=== PATIENT | male | born 1960 | race Caucasian/White ===

== ENCOUNTER 2024-08-22 15:58 | Emergency (ER) | payer BC, SELFPAY ==
[2024-08-22 16:04] VITALS: BP 145/94; PULSE 61; RESP 16; TEMP 36.9; O2SAT 100; BMI 26.4
[2024-08-22] MEDS: TET,DIPH,PERTUSS(ACELL),VAC/PF 0.5 ML SYRINGE IM (19:20)
--- NOTE | 2024-08-22 20:01 | ED.WOUNDLAC ---
HPI - Wound/Laceration General Chief Complaint: Wound/Laceration Stated Complaint: Lt hand wound Time Seen by Provider: 08/22/24 20:01 Source: patient Mode of arrival: Ambulatory History of Present Illness HPI narrative: 63-year-old male without any significant past medical history presents for evaluation of left thumb injury, states he was using a chain saw in the blade hit his thumb almost states that he is not up to date on his tetanus shot. He denies any other injuries or complaints at this time. Not on any blood thinners. Related Data Allergies Allergy/AdvReac Type Severity Reaction Status Date / Time dapsone AdvReac lab value Verified 08/22/24 16:04 changes Review of Systems Review of Systems Narrative: General: Denies fever, chills, weight loss HEENT: Denies headache, eye drainage, eye irritation, head trauma, sore throat, voice change Cardiovascular: Denies any chest pain, palpitations, tachycardia Respiratory: Denies any shortness of breath, cough, wheeze, stridor GI/: Denies any abdominal pain, nausea, vomiting, diarrhea, bright red blood per rectum, melanotic stools, urinary frequency, urinary retention, dysuria, hematuria MSK: Denies any joint pain, muscle pains, swelling Skin: Positive left thumb injury Neuro: Denies any headache, lightheadedness, dizziness, fainting, weakness Psych: Denies SI/HI Patient History Smoking Status: Never smoker Exam Narrative Exam Narrative: General: Cooperative, well-developed, not in acute distress HEENT: Normocephalic, atraumatic, PERRLA, normal sclera, eyelids normal Neck: Active full range of motion, atraumatic Chest: Normal to inspection, negative crepitus, no overlying erythema ecchymosis Respiratory: Normal respiratory effort, not in acute respiratory distress, clear to auscultation bilaterally negative cough, wheeze, tachypnea, rhonchi, rales Cardiology: Regular rate rhythm negative gallop, murmur, rubs GI/: No tenderness to palpation, soft, non rigid, normal to inspection, exam deferred MSK: Full active range of motion in all 4 extremities, atraumatic, no tenderness to palpation of any bony prominences Skin: 2 cm laceration noted to the medial aspect of the left thumb, neurovascularly intact not active bleeding no foreign body Neuro: Alert awake oriented x3, moves all 4 extremities spontaneously, cranial nerves intact, able to answer all questions appropriately follows commands appropriately Psych: Cooperative, negative suicidal or homicidal ideations Initial Vital Signs Initial Vital Signs: Vital Signs Temperature 98.4 F 08/22/24 16:04 Pulse Rate 61 08/22/24 16:04 Respiratory Rate 16 08/22/24 16:04 Blood Pressure 145/94 H 08/22/24 16:04 Pulse Oximetry 100 08/22/24 16:04 Oxygen Delivery Method Room Air 08/22/24 16:04 Procedures Laceration Repair Laceration 1: Time of procedure: 20:45 Site: hand Side (If applicable): left Size (cm): 2 Description: linear Depth: simple, single layer Local Anesthetic: lidocaine 2% Amount of anesthesia used (mL): 5 Skin layer closed with: other (Ethilon) Skin layer suture size: 4-0 Number of sutures: 5 Technique: simple, interrupted Course Orders Ordered: Discontinued Medications Diphtheria/Tetanus/Acell Pertussis (Tet,Diph,Pertuss(Acell),Vac/Pf 0.5 Ml Syringe) 0.5 ml IM .ONCE ONE Stop: 08/22/24 19:10 Last Admin: 08/22/24 19:20 Dose: 0.5 ml Documented By: CM Vital Signs Vital signs: Vital Signs - 8 hr 08/22/24 16:04 Temperature 98.4 F Pulse Rate 61 Respiratory Rate 16 Blood Pressure 145/94 H Pulse Oximetry 100 Oxygen Delivery Method Room Air MDM - Wound/Laceration Differential Diagnosis Differential diagnosis: Likely laceration, abrasion and avulsion of skin MDM Narrative Medical decision making narrative: 63-year-old male no significant past medical history not on any blood thinners presents for cut to left thumb, states that earlier today was using a chain saw and it caught the inner part of his left thumb, not up-to-date to tetanus which was updated here. On exam 2 cm laceration to the medial aspect of the left thumb superficial neurovascularly intact no foreign body this was repaired with 4 0 Ethilon. Patient was instructed to follow up with primary care in outpatient setting he verbalized understanding of this and agrees to being discharged home with outpatient follow up Discharge Plan Departure Patient Disposition: Home Clinical Impression: Laceration Instructions: How to Care for a Laceration After Repair, DI for Laceration Repair Activity Restrictions/Additional Instructions: You have sutures that need to be removed in approximately 1 week Please read the discharge instructions sheet carefully and bring all papers to all doctor follow-up visits, as it may contain information that your doctor may want to see. Disease processes change and evolve, if your symptoms worsen or if you develop any new symptoms that are concerning to you please return for evaluation. Your evaluation today does not show any evidence of any life-threatening/serious illnesses requiring admission to the hospital or surgery. Please follow-up with your doctor for re-evaluation in approximately 1 day. Seek immediate medical attention for any worrisome symptoms. *If you do not have a primary care provider please contact the [facility] Resource line at [phone]. They will ask some questions about your medical history and help get you set up with a doctor in the community. Stand Alone Forms: Patient Portal/API
[2024-08-22] MEDS: LIDOCAINE 2% INJ MDV 20ML 10 ML INJ (20:13)
[2024-08-22 20:31] VITALS: BP 165/89; PULSE 60; RESP 20; O2SAT 97
== END 2024-08-22 20:57 | disposition home or self-care (01) ==
PROVIDERS: Emergency Provider Student in an Organized Health Care Education/Training Program
DX: S61.012A Laceration without foreign body of left thumb without damage to nail, initial encounter (principal); W29.3XXA Contact with powered garden and outdoor hand tools and machinery, initial encounter; Z23 Encounter for immunization
CPT/HCPCS: 12001; 90471; 99283; 90715